=== PATIENT | male | born 1990 ===

== ENCOUNTER → 2022-08-31 | Outpatient (CLI) | payer OTHER | END | disposition EMS.NT | LOC: EMS 16:31 | DX: R53.81 Other malaise (principal); R53.83 Other fatigue; R05.9 Cough, unspecified; R53.1 Weakness; R68.83 Chills (without fever) ==

== ENCOUNTER 2022-09-19 14:59 | Outpatient (CLI) | payer MEDICAID, OTHER | END 2022-09-19 15:00 | disposition EMS.NT | LOC: EMS 14:59 | DX: M25.561 Pain in right knee (principal) ==

== ENCOUNTER 2022-09-21 16:19 | Outpatient (CLI) | payer MEDICAID | END 2022-09-21 16:20 | disposition critical access hospital (66) | LOC: EMS 16:19 | DX: F41.9 Anxiety disorder, unspecified (principal); R06.00 Dyspnea, unspecified | CPT/HCPCS: A0425; A0429; A0999 ==

== ENCOUNTER 2022-09-21 16:36 | Emergency (ER) | payer MEDICAID, OTHER ==
[2022-09-21] MEDS ORDERED: SODIUM CHLORIDE 0.9% 1,000 ML IV STA (16:45)
--- NOTE | 2022-09-21 16:47 | ED Physician Documentation ---
History of Present Illness - Stated complaint Stated Complaint: SOA/CP - History obtained from History obtained from: Patient, EMS - Additonal information Additional information: 32-year-old gentleman presents by ambulance for the evaluation of anxiety and potential dehydration. EMS reports that he was found on the ground but there was no trauma. Patient states he is feeling very anxious and admits to methamphetamine use this morning. That said he declines anxiolysis. He would like IV fluids and to make sure nothing serious is going on. Review of Systems Unable to obtain: Confused PD PAST MEDICAL HISTORY - Allergies Allergies/Adverse Reactions: Allergies Allergy/AdvReac Type Severity Reaction Status Date / Time No Known Drug Allergies Allergy Verified 09/21/22 16:46 PD ED PE NORMAL - Vitals Vital signs reviewed: Yes - General General: Other (He is talking very fast and is almost unintelligible. He is fidgety consistent with "tweaking") - HEENT HEENT: PERRL, EOMI - Neck Neck: Supple, no meningeal sign, No bony TTP - Cardiac Cardiac: Other (Tachycardic, regular, no murmur) - Respiratory Respiratory: No respiratory distress, Clear bilaterally - Abdomen Abdomen: Normal bowel sounds, Soft, Non tender - Back Back: No CVA TTP, No spinal TTP - Derm Derm: Normal color, Other (Sweaty) - Extremities Extremities: No edema, No calf tenderness / cord - Neuro Eye Opening: Spontaneous Motor: Obeys Commands Verbal: Oriented GCS Score: 15 - Psych Psych: Other (Flight of ideas) Results - Vitals Vitals: Vital Signs - 24 hr 09/21/22 16:47 Temperature 37.3 C Heart Rate 108 H Respiratory 20 Rate Blood Pressure 151/98 H O2 Saturation 99 Oxygen O2 Source Room air - Labs Labs: Laboratory Tests 09/21/22 16:53 WBC 8.0 RBC 4.15 L Hgb 12.5 L Hct 37.5 L MCV 90.4 MCH 30.1 MCHC 33.3 RDW 13.2 Plt Count 242 MPV 11.3 Neut # (Auto) 3.7 Lymph # (Auto) 3.1 Bartholomew # (Auto) 1.0 Eos # (Auto) 0.2 Baso # (Auto) 0.1 Absolute Nucleated RBC 0.00 Nucleated RBC % 0.0 PD Medical Decision Making - ED course ED course: 32-year-old gentleman with methamphetamine abuse presents with potential dehydration and anxiety. He declined anxiolytic here. We were in the midst of working him up when he eloped from the department. Departure - Departure Disposition: 01 Home, Self Care Clinical Impression: Methamphetamine abuse Condition: Stable
[2022-09-21 16:51] VITALS: BP 151/98
[2022-09-21 17:00] LABS: BASOPHILS # (AUTO) 0.1 10^3/uL (0.0-0.1); BASOPHILS % (AUTO) 1.1 %; EOSINOPHILS # (AUTO) 0.2 10^3/uL (0.0-0.7); HCT - HEMATOCRIT 37.5 % (42.0-52.0); HGB - HEMOGLOBIN 12.5 g/dL (14.0-18.0); LYMPHOCYTES # (AUTO) 3.1 10^3/uL (1.5-3.5); LYMPHOCYTES % (AUTO) 39.2 %; MEAN CORPUSCULAR HEMOGLOBIN 30.1 pg (27.0-31.0); MEAN CORPUSCULAR HGB CONC 33.3 g/dL (32.0-36.0); MEAN CORPUSCULAR VOLUME 90.4 fL (80.0-94.0); MEAN PLATELET VOLUME 11.3 fL (7.4-11.4); MONOCYTES % (AUTO) 11.9 %; NEUTROPHILS # (AUTO) 3.7 10^3/uL (1.5-6.6); NEUTROPHILS % (AUTO) 45.7 %; PLT - PLATELET COUNT 242 10^3/uL (130-450); RED BLOOD COUNT 4.15 10^6/uL (4.70-6.10); RED CELL DISTRIBUTION WIDTH 13.2 % (12.0-15.0)
== END 2022-09-21 17:14 | disposition home or self-care (01) ==
LOC: EDUNIT# → ED 16:36
DX: F15.10 Other stimulant abuse, uncomplicated (principal)
CPT/HCPCS: 36415; 80053; 80320; 82550; 85025; 99283